=== PATIENT | male | born 1985 | race Two or more races ===

== ENCOUNTER 2016-09-23 17:46 | Emergency (ER) | payer SELFPAY ==
[~2016-09-23] VITALS: Ht 165.1 cm; Wt 80.7 kg
[2016-09-23] MEDS ORDERED: Lidocaine 1% 10mg/ml/Epi 0.005mg/ml 30ml vial INJ ONE (18:00)
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
[2016-09-23 18:40] VITALS: BP 134/89
[2016-09-23 20:53] VITALS: BP 137/90
[2016-09-23] MEDS ORDERED: CEPHALEXIN500 MG ORAL (21:10)
[2016-09-23] MEDS ORDERED: TdaP Vaccine 0.5ml Syr IM ONE (21:15)
[2016-09-23 21:20] VITALS: BP 137/90
--- NOTE | 2016-09-24 11:07 | Diagnostic Imaging Report ---
Indication: Pain Findings: 2 views of the right forearm were obtained. No acute fractures, malalignment, erosions or periostitis are identified. Bone mineralization is within normal limits. Soft tissues are unremarkable. Impression: Negative examination of the forearm.
== END 2016-09-23 21:21 | disposition home or self-care (01) ==
LOC: EDBD 17:46 → EMR 18:09
DX: S41.111A Laceration without foreign body of right upper arm, initial encounter (principal); W22.8XXA Striking against or struck by other objects, initial encounter; Y93.9 Activity, unspecified; Y99.9 Unspecified external cause status
CPT/HCPCS: 90471; 90715; 96372